=== PATIENT | female | born 1990 | race Caucasian/White ===

== ENCOUNTER 2017-12-16 12:41 | Emergency (ER) | payer SELFPAY ==
--- NOTE | 2017-12-16 13:36 | Diagnostic Imaging Report ---
BRANDI BAUTISTA [facility] [address] [facility] [address] [address] Report Submission Date: Dec 16, 2017 1:29:49 PM CDT Patient Study Name: SILVINO SANDERS Date: Dec 16, 2017 1:09:23 PM CDT Modality Type: DX Gender: F Description: SPINE : 86 Institution: [facility] Physician: BRANDI BAUTISTA 2 view lumbar spine Clinical history pain Technique AP and lateral lumbar spine Findings: the Disc and vertebral body height are normal. There is No fracture spondylolysis or spondylolisthesis. Bone density appears normal. Impression: No acute lumbar spine pathology Electronically signed on Dec 16, 2017 1:29:49 PM CDT by: Fernandez NEWBERRY
--- NOTE | 2017-12-16 13:38 | ED Physician Documentation ---
Low Back Pain - HISTORIAN Historian: patient - HPI Stated Complaint: Low Back Pain Chief Complaint: Low Back Pain/ Injury Additional Information: Patient presents to the ED with a 3 week history of low back pain. She was seen in clinic about 2 weeks ago and given Meloxicam and flexeril with no improvement. Today patient states she bent over to put on her pants and heard a "pop". Her low back pain then became worse. She denies any known injury. She initially woke up with the back pain 3 weeks ago. She denies loss of bowel or bladder control. She works in healthcare. History: back pain Onset: days ago (21) Duration: intermittent Context: other (woke up 3 weeks ago with back pain) Where: work Other Injuries: denies: neck, head, back Severity: moderate Quality: sharp Associated Symptoms: denies: fever, sweating, constipation Worsened By:: upright position, cough Relieved By: supine, remaining still Further Comments: no - ROS CONST: no problems. denies: recent illness, weakness, other CVS/RESP: denies: none, chest pain, shortness of breath, palpitations, other EYES/ENT: none MS/SKIN/LYMPH: denies: neck pain Neuro/Psych: denies: headache GI/: denies: abdominal pain - PAST HX Past History: denies: back injury, back pain, compression fracture(s), kidney stones Other History: denies: aortic aneurysm Surgeries/Procedures: none Allergies/Adverse Reactions: Allergies Allergy/AdvReac Type Severity Reaction Status Date / Time amoxicillin Allergy Verified 12/16/17 12:50 prochlorperazine Allergy Verified 12/16/17 12:50 [From Compazine] Home Medications: Ambulatory Orders Medication Instructions Recorded Cyclobenzaprine HCl [Flexeril] 5 mg PO 12/16/17 Meloxicam 15 mg PO 12/16/17 Tizanidine HCl 4 mg PO Q8 PRN #15 tablet 12/16/17 predniSONE [Deltasone] 60 mg PO DAILY 4 Days #12 tablet 12/16/17 - SOCIAL HX Smoking History: cigarettes, greater than 1 pack/day Alcohol Use: none Drug Use: none - FAMILY HX Family History: none - VITAL SIGNS Vital Signs: Vital Signs Temp Pulse Resp BP Pulse Ox 97 F L 82 18 129/85 12/16/17 12:45 12/16/17 12:45 12/16/17 12:45 12/16/17 12:45 - REVIEWED ASSESSMENTS Nursing Assessment Reviewed: Yes Vitals Reviewed: Yes ED Results Lab/Radiology - Lab Results Lab Results: 2 view lumbar spine Clinical history pain Technique AP and lateral lumbar spine Findings: the Disc and vertebral body height are normal. There is No fracture spondylolysis or spondylolisthesis. Bone density appears normal. Impression: No acute lumbar spine pathology Electronically signed on Dec 16, 2017 1:29:49 PM CDT by: Fernandez Barron - Orders Orders: ED Orders Category Date Time Status L SPINE 2 OR 3 VIEWS [RAD] Stat Exams 12/16/17 Taken URINE HCG [URINE HCG] Stat Lab 12/16/17 13:03 Ordered Low Back Pain/Injury - Physical Exam General Appearance: no acute distress, alert EENT: LYNN Neck: painless ROM Resp/CVS: chest non-tender, breath sounds nml Abdomen: non-tender Back: non-tender Straight Leg Raising: Positive Right Neuro/Psych: oriented x3, motor nml. No: difficulty walking Skin: warm/dry Extremities: non-tender, normal range of motion, no edema Discharge Clincal Impression: Low back pain Qualifiers: Chronicity: acute Back pain laterality: right Sciatica presence: with sciatica Sciatica laterality: sciatica of right side Qualified Code(s): M54.41 - Lumbago with sciatica, right side Prescriptions: predniSONE [Deltasone] 60 mg PO DAILY 4 Days #12 tablet Tizanidine HCl 4 mg PO Q8 PRN #15 tablet PRN Reason: Spasms Referrals: Jhonathan Sotomayor MD [Primary Care Provider] - 2 Days Additional Instructions: Stop taking Meloxicam and flexeril. Take Prednisone and Tizanidine instead. Stay active. Condition: Good Disposition: 01 HOME, SELF-CARE Decision to Admit: NO Date of Decison to Admit: 12/16/17 Decision Time: 13:42
[2017-12-16 14:03] VITALS: BP 118/68
== END 2017-12-16 14:02 | disposition home or self-care (01) ==
LOC: ED 12:41
DX: M54.5 Low back pain (principal); M54.41 Lumbago with sciatica, right side
CPT/HCPCS: 72100; 81025; 99283

== ENCOUNTER 2018-09-10 19:07 | Emergency (ER) | payer OTHER ==
--- NOTE | 2018-09-10 19:19 | ED Physician Documentation ---
Hand Injury - HISTORIAN Historian: patient - HPI Stated Complaint: right hand pain Chief Complaint: Hand Injury Onset: just prior to arrival Where: home Severity: mild Duration: persistent since Context: blow Location of Injury: R hand Modifying Factors: pain on movement Further Comments: yes (she was hitting the wall to quiet her dogs and instantly got pain and swelling on right lateral hand. She has taken Ibuprofen with pain relief although swelling continued despite ice . She has FROM pain with palpation and movement) - ROS CONST: no problems - PAST HX Past History: none Immunizations: UTD Allergies/Adverse Reactions: Allergies Allergy/AdvReac Type Severity Reaction Status Date / Time amoxicillin Allergy Verified 09/10/18 19:25 drospirenone [From FRANSICO (28)] Allergy Verified 09/10/18 19:25 ethinyl estradiol Allergy Verified 09/10/18 19:25 [From FRANSICO (28)] prochlorperazine Allergy Verified 09/10/18 19:25 [From Compazine] Home Medications: Ambulatory Orders Medication Instructions Recorded NK 09/10/18 - SOCIAL HX Smoking History: cigarettes Alcohol Use: none Drug Use: none - FAMILY HX Family History: none - VITAL SIGNS Vital Signs: Vital Signs Temp Pulse Resp BP Pulse Ox 118/68 12/16/17 14:02 - REVIEWED ASSESSMENTS Nursing Assessment Reviewed: Yes Vitals Reviewed: Yes ED Results Lab/Radiology - Radiology Radiology Impressions: Examination: Plain film right hand History: RT HAND PAIN, HIT HAND ON WALL Comparison exams: None available Findings: 3 views of the right hand demonstrates normal cortical margins. No fracture. No dislocation. No soft tissue abnormality. Impression: No acute osseous abnormality Electronically signed on Sep 10, 2018 8:00:26 PM CDT by: Gianni Meyer Hand Injury Physical Exam - Exam General Appearance: no acute distress, alert Hand: tenderness (right lateral side ), soft tissue tenderness, swelling, pain Wrist: normal inspection Neuro: sensation nml Vascular: no vascular compromise Tendons: tendon function nml Forearm/Elbow/Arm: uninjured above wrist Skin: warm/dry, normal color Head/ENT: nml inspection Neck/Back: nml inspection Resp/CVS: chest non-tender, breath sounds nml, heart sounds nml, no resp. distress, lungs clear, reg. rate & rhythm Abdomen: non-tender Discharge Clincal Impression: Right hand pain Referrals: Jhonathan Sotomayor MD [Primary Care Provider] - 2 Days Comments: 1. Ice to area 2. OTC meds as directed as needed for pain 3. Follow up with PCP in 2-4 days 4. Return to ER for any increasing concerns Condition: Stable Disposition: 01 HOME, SELF-CARE Decision to Admit: NO Date of Decison to Admit: 09/10/18 Decision Time: 20:04
[2018-09-10 19:27] VITALS: BP 136/84
--- NOTE | 2018-09-11 06:24 | Diagnostic Imaging Report ---
ERIKA BURTON [facility] [address] [facility] [address] [place], [place]. [address] Report Submission Date: Sep 10, 2018 8:00:26 PM CDT Patient Study Name: SILVINO SANDERS Date: Sep 10, 2018 7:23:54 PM CDT Modality Type: DX Gender: F Description: HAND 3 VIEWS OR MORE : 86 Institution: [facility] Physician: ERIKA BURTON Examination: Plain film right hand History: RT HAND PAIN, HIT HAND ON WALL Comparison exams: None available Findings: 3 views of the right hand demonstrates normal cortical margins. No fracture. No dislocation. No soft tissue abnormality. Impression: No acute osseous abnormality Electronically signed on Sep 10, 2018 8:00:26 PM CDT by: Gianni NEWBERRY
== END 2018-09-10 20:08 | disposition home or self-care (01) ==
LOC: ED 19:07
DX: M79.641 Pain in right hand (principal); S69.91XA Unspecified injury of right wrist, hand and finger(s), initial encounter; X58.XXXA Exposure to other specified factors, initial encounter; Y99.8 Other external cause status
CPT/HCPCS: 73130; 99282